=== PATIENT | female | born 1980 | race Caucasian/White ===

== ENCOUNTER 2017-01-09 19:46 | Emergency (ER) | payer OTHER ==
[2017-01-09 20:36] LABS: Urine Bilirubin Negative (NEGATIVE); Urine Blood Negative /ul (NEGATIVE); Urine Ketone Negative (NEGATIVE); Urine Nitrite Negative (NEGATIVE); Urine Protein Negative (NEGATIVE); Urine Specific Gravity <=1.005 SP.GR. (1.005-1.010); Urine Urobilinogen Normal (NORMAL)
[2017-01-09] MEDS ORDERED: ONDANSETRON HCL/PF 2 MG/ML VIAL IV ONE (20:42)
[2017-01-09] MEDS ORDERED: NORMAL SALINE 1,000 ML IV ONE (20:43)
--- NOTE | 2017-01-09 20:44 | ERNOTE ---
Medical Problem HPI - General Chief Complaint: Nausea/Vomiting Time Seen by Provider: 01/09/17 20:30 Source: patient, family Exam Limitations: no limitations - Immun/Allergies/Home Medications Immunizations: IMMUNIZATION HX Immunizations Up to Date Yes History of Influenza Vaccine Yes Hx Pneumococcal Vaccination Yes Allergies/Adverse Reactions: Allergies pseudoephedrine HCl [From Sudafed] Allergy (Mild, Verified 01/09/17 20:06) triprolidine HCl [From Actifed] Allergy (Mild, Verified 01/09/17 20:06) Home Medications: HOME MEDICATIONS Albuterol Sulfate [Proair Hfa] 1 - 2 puff IH Q4H PRN 08/04/14 [Last Taken 23:45] Ibuprofen [Motrin] 600 mg PO Q6H PRN 08/04/14 [Last Taken 08/04/14 02:00] Sulfamethoxazole/Trimethoprim [Bactrim Ds] 1 tab PO BID #5 tab 01/09/17 [Last Taken Unknown] hydrOXYzine PAMOATE [Hydroxyzine Pamoate] 25 mg PO QID PRN #20 capsule 01/09/17 [Last Taken Unknown] - History of Present History Narrative: N/V for a "few weeks" intermittent, not directly associated with meals or activity. Usually feels better after she vomits and is able to go back to eating/ drinking in a few hours. Timing: getting worse Severity: mild, moderate Review of Systems - Review of Systems Constitutional: Present: fatigue. Absent: recent illness EYE: Present: no symptoms reported ENT: Present: no symptoms reported Respiratory: Absent: cough Cardiology: Absent: chest pain Gastrointestinal/Abdominal: Present: See HPI Genitourinary: Present: frequency, dysuria - mild Musculoskeletal: Present: no symptoms reported Skin: Absent: rash Neurological: Present: no symptoms reported Endocrine: Present: no symptoms reported - Patient's Past Medical History Patient History - Medical: No pertinent hx Patient History - Cardiac/Respiratory: No pertinent hx Patient History - Cancer: No Hx of Cancer Patient History - Surgical Procedures: Cholecystectomy Patient History - Other: None LMP (females 10-50): last week - Social History Living Situations: home Psych History: No pertinent hx Smoking Status: Never smoker Alcohol Use: none Drug Use: none - Immunizations Immunizations Up to Date: Yes Hx Pneumococcal Vaccination: Yes History of Influenza Vaccine: Yes Physical Exam - Physical Exam General Appearance: Present: wd/wn, alert, no apparent distress Head Exam: Present: normal inspection, no evidence of injury Eye Exam: Normal inspection: bilateral, PERRL: bilateral Ears, Nose, Throat: Present: normal ENT inspection Neck: Present: normal inspection, supple Respiratory: Present: no respiratory distress, lungs clear Gastrointestinal/Abdominal: Present: tenderness - RUQ mild and RLQ moderate, abnormal bowel sounds - hypoactive. Absent: distended, guarding, rebound Back Exam: Present: normal inspection, normal range of motion, no CVA tenderness , no vertebral tenderness Neurological Exam: Present: alert, oriented, normal mood/affect, want ad clerk II-XII nml as tested Skin Exam: Present: normal color, warm/dry. Absent: diaphoresis, jaundice ED Progress - Results and Orders Patient's Lab Results:: I have reviewed the patient's lab results. Results and Orders: Laboratory Tests 01/09/17 01/09/17 01/09/17 20:25 20:56 20:56 WBC 10.2 Hgb 12.2 L Hct 36.4 L Plt Count 328 Sodium 141 Potassium 3.8 Chloride 104 Carbon Dioxide 24.3 Anion Gap 16.5 H BUN 6 Creatinine 0.87 Est GFR (Non-Af Amer) 79 BUN/Creatinine Ratio 6.9 L Random Glucose 114 H Calcium 9.3 Total Bilirubin 0.3 AST 12 ALT 24 Alkaline Phosphatase 91 Total Protein 8.0 Albumin 4.2 Amylase 44 Lipase 84 Urine Color Yellow Urine Appearance Clear Urine pH 7.0 Ur Specific [place] <=1.005 Urine Protein Negative Urine Glucose (UA) Negative Urine Ketones Negative Urine Blood Negative Urine Nitrate Negative Urine Bilirubin Negative Urine Urobilinogen Normal Ur Leukocyte Esterase 25 H Urine RBC None seen Urine WBC None seen Ur Epithelial Cells 5-10 H Urine Bacteria Trace Urine Culture Comments Culture to follow - Vital Signs Patient's Vital Signs:: I have reviewed the patient's vital signs. Vital Signs: Vital Signs 01/09/17 19:59 Temperature 36.9 C Pulse Rate 84 Respiratory 16 Rate Blood Pressure 173/98 O2 Sat by Pulse 100 Oximetry - X-Ray X-Ray #1 X-Ray: abdomen Interpretation: Reviewed by me X-ray Comments: FINDINGS: No free air. Nonobstructed nonspecific bowel gas pattern. Surgical clips in right upper quadrant. No abnormal calcifications. Osseous structures are intact. IMPRESSION: 1. Unremarkable exam. Electronically signed by Juanito Harden M.D.. - Progress/Reassessment Chief Complaint: Nausea/Vomiting Progress Note-Subjective: 01/09/17 23:45 Discussed findings with patient and that there are no definitive results but that the combination of problems may have contributed to her symptoms. encouraged her to work on constipation and with antibiotics for UTI if she is not improving she should see her regular doctor. Departure - Departure Clinical Impression: UTI (urinary tract infection) Qualifiers: Urinary tract infection type: acute cystitis Hematuria presence: without hematuria Qualified Code(s): N30.00 - Acute cystitis without hematuria Nausea & vomiting Qualifiers: Vomiting type: unspecified Vomiting Intractability: non-intractable Qualified Code(s): R11.2 - Nausea with vomiting, unspecified Constipation Qualifiers: Constipation type: slow transit constipation Qualified Code(s): K59.01 - Slow transit constipation Disposition: Home Follow Up Needed Condition: Good Instructions: Constipation, Adult, [id number], Urinary Tract Infection, Adult , [id number] Prescriptions: Sulfamethoxazole/Trimethoprim [Bactrim Ds] 1 tab PO BID #5 tab hydrOXYzine PAMOATE [Hydroxyzine Pamoate] 25 mg PO QID PRN #20 capsule PRN Reason: Nausea
[2017-01-09 20:48] LABS: Urine Appearance Clear; Urine Bacteria TRACE; Urine Color Yellow; Urine RBC None Seen /hpf (0-5); Urine WBC None Seen /hpf (0-5)
[2017-01-09] MEDS ORDERED: ONDANSETRON HCL/PF 2 MG/ML VIAL ONE (20:56)
[2017-01-09 21:00] LABS: Hematocrit 36.4 % (37.0-47.0); Hemoglobin 12.2 gm/dL (12.5-16.0); Mean Cell Volume 77.9 fl (78-100); Mean Corpuscular Hemoglobin 26.1 pg (27-31); Mean Corpuscular Hgb Conc 33.5 g/dl (32-36); Mean Platelet Volume 9.1 fl (6.0-9.5); Neutrophil # 6.4 K/mm3 (1.3-6.0); Neutrophil % 62.1 % (42-75.0); Platelet Count 328 K/mm3 (150-450); Red Blood Count 4.67 M/mm3 (4.2-5.4); Red Cell Distribution Width 13.2 % (11.5-14.0); White Blood Count 10.2 K/mm3 (4.0-10.5)
[2017-01-09 21:15] LABS: Albumin * 4.2 gm/dl (3.4-5.0); Anion Gap 16.5 mmol/L (6.8-13.8); BUN/Creatinine Ratio 6.9 (9.0-21.6); Bilirubin, Total 0.3 mg/dL (0.0-1.1); Ca. Corrected For Albumin 8.8 mg/dL (8.4-10.2); Calcium * 9.3 mg/dL (7.9-10.9); Carbon Dioxide 24.3 mmol/L (24-32.6); Potassium 3.8 mmol/L (3.4-4.6)
[2017-01-09] MEDS ORDERED: SULFAMETHOXAZOLE/TRIMETHOPRIM 1 TAB TABLET PO ONE (23:53)
[2017-01-09 23:54] VITALS: BP 147/80
[2017-01-09] MEDS ORDERED: SULFAMETHOXAZOLE/TRIMETHOPRIM 1 TAB TABLET ONE (23:54)
== END 2017-01-10 00:02 | disposition home or self-care (01) ==
LOC: ER 19:46
DX: N30.00 Acute cystitis without hematuria (principal); R11.2 Nausea with vomiting, unspecified; K59.01 Slow transit constipation
CPT/HCPCS: 36415; 74020; 80053; 81001; 82150; 83690; 85025; 87086; 96374; 99284; J2405